=== PATIENT | female | born 2000 | race Caucasian/White ===

== ENCOUNTER → 2024-02-20 09:17 | Outpatient (REF) | payer BC, SELFPAY ==
[2024-03-01 08:46] LABS: HPV, High Risk Not Detected; HPV, High Risk Source Cervical
== END ==
LOC: CPAP 09:17
PROVIDERS: ATTENDING PHYSICIAN Obstetrics & Gynecology
DX: Z01.419 Encounter for gynecological examination (general) (routine) without abnormal findings (principal)
CPT/HCPCS: 87624; G0123

== ENCOUNTER → 2024-05-22 06:57 | Outpatient (REF) | payer BC, SELFPAY ==
[2024-05-22 08:21] LABS: Amylase 58 U/L (30-110); Lipase 62 U/L (23-300)
[2024-05-23 21:32] LABS: CA 19-9 7 U/mL (<=35)
== END ==
LOC: REG 06:57
PROVIDERS: ATTENDING PHYSICIAN Family Medicine
DX: R89.9 Unspecified abnormal finding in specimens from other organs, systems and tissues (principal)
CPT/HCPCS: 36415; 82150; 83690; 86301

== ENCOUNTER → 2024-11-16 15:42 | Outpatient (REF) | payer BC, SELFPAY | LOC: HWRCS 15:42 | PROVIDERS: ATTENDING PHYSICIAN Internal Medicine Cardiovascular Disease; FAMILY PHYSICIAN Family Medicine | DX: R06.09 Other forms of dyspnea (principal) | CPT/HCPCS: 93306 ==